=== PATIENT | male | born 1970 | race Caucasian/White ===

== ENCOUNTER 2016-11-11 15:56 | Emergency (ER) | payer OTHER ==
[~2016-11-11] VITALS: Ht 180.3 cm; Wt 102.1 kg
[2016-11-11 16:01] VITALS: BP 126/89
--- NOTE | 2016-11-11 17:00 | RADIOLOGY REPORT ---
EXAMINATION: XR CHEST CLINICAL INFORMATION: Cough and fever. COMPARISON: None. TECHNIQUE: PA and lateral views of the chest were obtained. FINDINGS: The lungs are well-expanded and clear without focal airspace consolidation. No pleural effusions or pneumothoraces are identified. Cardiomediastinal contours are within normal limits. Soft tissues are unremarkable. No acute osseous abnormality is identified. IMPRESSION: No acute pulmonary process.
--- NOTE | 2016-11-11 17:23 | ED INFLUENZA/URI COMPLAINT ---
History of Present Illness General Chief Complaint: General Adult Stated Complaint: FEVER, SOB Source: patient, family, old records Exam Limitations: no limitations Vital Signs & Intake/Output Vital Signs & Intake/Output Vital Signs Date Time Temp Pulse Resp B/P Pulse O2 O2 Flow FiO2 Ox Delivery Rate 11/11 1601 96.2 105 18 126/89 95 Room Air ED Intake and Output 11/12 0000 11/11 1200 Intake Total Output Total Balance Patient 225 lb Weight Allergies Coded Allergies: No Known Allergies (11/11/16) Reconcile Medications Azithromycin (Zithromax) 250 MG TABLET 1 DP PO AD BRONCHITIS 2 the first day followed by 1 for days 2-5 Robitussin AC (Guaifenesin-Codeine Syrup) 200 MG-20 MG/10 ML LIQUID 10 ML PO Q6HR PRN COUGH Triage Note: 45 YEAR OLD MALE SENT TO ER FROM WALK IN FOR CXR. PT STATES THAT HE HAS HAD ANON PRODUCTIVE COUGH SINCE SATURDAY AND FEVERS, AFEBRILE AT TRIAGE .TOOL MOTRIN EARLIER Triage Nurses Notes Reviewed? yes Onset: Abrupt Duration: week(s): (1), constant Timing: recent history Severity: moderate Severity Numbers: 6 Prior Episodes/Possible Cause: occassional episodes No Modifying Factors: none Associated Symptoms: cough, fever/chills HPI: 45-year-old male with exercise induced asthma presents sent in from an urgent care after he states he's had a one-week history of intermittent fevers, and nonproductive cough. Patient's temperature was 101 at the urgent care for which she was given ibuprofen. He states he is been using his pro-air inhaler with improvement in his symptoms. He had a negative. Performed at the urgent care. He denies chest pain shortness of breath, abdominal pain nausea vomiting or diarrhea no sore throat and rhinorrhea congestion. No sick contacts. The patient returned from 4-2 weeks ago. (LESLEY NULL) Past History Travel History Traveled to [place] past 21 day No Medical History Any Pertinent Medical History? see below for history Neurological: NONE EENT: NONE Cardiovascular: hyperlipidemia Respiratory: asthma Gastrointestinal: NONE Hepatic: NONE Renal: NONE Musculoskeletal: NONE Psychiatric: NONE Endocrine: NONE Blood Disorders: NONE Cancer(s): NONE ROOFING SALES REPRESENTATIVE/Reproductive: NONE Surgical History Surgical History: none Psychosocial History What is your primary language Estonian Tobacco Use: Never used ETOH Use: denies use Illicit Drug Use: denies illicit drug use Family History Hx Contributory? No (LESLEY NULL) Review of Systems Review of Systems Constitutional: Reports: see HPI. All Other Systems: Reviewed and Negative Comments Review of systems: See HPI, All other systems negative. Constitutional, no chills fever, no malaise HEENT: No visual changes no sore throat no congestion Cardiovascular: No chest pain , no palpitation Skin, jaundice no rashes, no change in skin Respiratory: No dyspnea cough no sputum no hemoptysis GI: No nausea no vomiting, no diarrhean : No dysuria Muscle skeletal: No joint pain, no back pain, no neck pain, Neurologic: No numbness no headache Psych: No stress Heme/endocrine: No bruising no bleeding Immunology: No lymphadenopathy (LESLEY NULL) Physical Exam Physical Exam General Appearance: well developed/nourished, no apparent distress, alert, awake Ears, Nose, Throat: normal ENT inspection, moist mucous membrane, hearing grossly normal Comments: Well-developed well-nourished patient in no apparent distress. Head/Face: Atraumatic, no maxillary/frontal sinus tenderness, no facial swelling Eyes: PERRL, EOMI, no conjunctival injection. No nystagmus Ear:External auditory canal and Tympanic membranes clear, no erythema, no FB. Nose: atraumatic.Normal inspection: No bleeding Throat: Moist mucous membranes.Pharynx normal. No pharyngeal erythema/exudate seen. No stridor/drooling or assymetry. No swelling or edema. Neck: Supple, no lymphadenopathy, FROM Back: FROM, Nontender Cardiovascular: Regular rate and rhythms no murmurs rubs or gallops, Respiratory: Chest nontender.There were no bony deformities, no asymmetry. No respiratory distress. Patient speaking in full complete sentences. Breath sounds clear to auscultation bilaterally: NO W/R/R Extremities: full range of motion Neuro: Alert and oriented x3 Skin: Warm & dry;No appreciable rash on exposed skin Psych: Mood affect normal, normal memory normal judgment. Core Measures Severe Sepsis Present: No Septic Shock Present: No (LESLEY NULL) Progress Differential Diagnosis: influenza, otitis, pneumonia, pharyngitis, sinusitis Plan of Care: I discussed the patient his x-ray results patient is nontoxic afebrile appearing speaking in full complete sentences no respiratory distress prescription for Damian- Chris Robitussin with codeine were called into his pharmacy advise continue using his inhaler as needed, follow-up with primary care this week, return anytime sooner with any concerns he feels comfortable to plan I answered all of her questions clear for discharge Diagnostic Imaging: Viewed by Me: Radiology Read. Discussed w/RAD: Radiology Read. Radiology Impression: PATIENT: FESTUS LAZO PRESENT AGE : 45 PATIENT ACCOUNT NO: [id number] : 71 LOCATION: [facility] [place] ORDERING PHYSICIAN: CHRISTIANO PALMA DO SERVICE DATE: 11/11/16 EXAM TYPE: RAD - XRY-CHEST XRAY, PA AND LATERAL EXAMINATION: XR CHEST CLINICAL INFORMATION: Cough and fever. COMPARISON: None. TECHNIQUE: PA and lateral views of the chest were obtained. FINDINGS: The lungs are well-expanded and clear without focal airspace consolidation. No pleural effusions or pneumothoraces are identified. Cardiomediastinal contours are within normal limits. Soft tissues are unremarkable. No acute osseous abnormality is identified. IMPRESSION: No acute pulmonary process. DICTATED BY: CAMI OLEA MD DATE/TIME DICTATED:11/11/161655 RAT EXTERMINATOR:CRIS DATE/TIME TRANSCRIBED:11/11/161655 CONFIDENTIAL, DO NOT COPY WITHOUT APPROPRIATE AUTHORIZATION. <Electronically signed in Other Vendor System> SIGNED BY: CAMI OLEA MD 11/11/16 1700 Initial ED EKG: none (LESLEY NULL) Departure Departure Time of Disposition: 1730 Disposition: HOME OR SELF CARE Condition: Stable Clinical Impression Primary Impression: Bronchitis Referrals: ESTRADA MEYER,LESLEY LEAHY (PCP/Family) Additional Instructions: Z-Chris as directed, Robitussin with codeine for cough he's caution as this will make you drowsy no driving or drinking alcohol while taking. These prescriptions were sent to your pharmacy. continue using your albuterol inhaler, interchange tylenol or motrin every 4-6 hours as needed. followup with your pmd this week, return with any concerns Departure Forms: Customer Survey General Discharge Information Prescriptions: Current Visit Scripts Robitussin AC (Guaifenesin-Codeine Syrup) 10 ML PO Q6HR PRN COUGH #200 ML Azithromycin (Zithromax) 1 DP PO AD #6 TAB 2 the first day followed by 1 for days 2-5 (LESLEY NULL) PA/ASSISTANT AUDITOR Co-Sign Statement Statement: ED Attending supervision documentation- [] I saw and evaluated the patient. I have also reviewed all the pertinent lab results and diagnostic results. I agree with the findings and the plan of care as documented in the PA's/ASSISTANT AUDITOR's documentation. [X] I have reviewed the ED Record and agree with the PA's/ASSISTANT AUDITOR's documentation. [] Additions or exceptions (if any) to the PAs/ASSISTANT AUDITOR's note and plan are summarized below: [] (FREDERICK MEYER,KRISTINA)
[2016-11-11] MEDS ORDERED: GUAIFENESIN-COD10 ML PO (17:33)
[2016-11-11] MEDS ORDERED: ZITHROMAX250 M2 PO (17:33)
== END 2016-11-11 17:57 ==
LOC: ERH 15:56
DX: J40 Bronchitis, not specified as acute or chronic (principal)